=== PATIENT | male | born 1995 | race Caucasian/White ===

== ENCOUNTER 2021-06-16 19:48 | Emergency (ER) ==
[~2021-06-16] VITALS: Ht 167.6 cm; Wt 70.4 kg
[2021-06-16] MEDS ORDERED: ACET-683 PO (19:54)
[2021-06-17 01:35] VITALS: BP 129/65
== END 2021-06-17 03:16 | disposition left against medical advice (07) ==
LOC: M ED 19:48
DX: Z53.29 Procedure and treatment not carried out because of patient's decision for other reasons (principal)

== ENCOUNTER 2021-06-17 10:39 | Emergency (ER) | payer OTHER ==
[~2021-06-17] VITALS: Ht 167.6 cm; Wt 69.0 kg
[~2021-06-17 10:39] MED LIST: ACET-683 PO
[2021-06-17 12:02] VITALS: BP 141/74
== END 2021-06-17 12:02 | disposition home or self-care (01) ==
LOC: M ED 10:39
DX: S09.90XA Unspecified injury of head, initial encounter (principal); W22.8XXA Striking against or struck by other objects, initial encounter; Y92.89 Other specified places as the place of occurrence of the external cause; Y99.0 Civilian activity done for income or pay